=== PATIENT | male | born 1945 | race Caucasian/White ===

== ENCOUNTER → 2023-12-25 12:21 | Outpatient (REF) | payer MEDICARE, SELFPAY | LOC: HWRAD 12:21 | PROVIDERS: ATTENDING PHYSICIAN Dermatology; FAMILY PHYSICIAN Internal Medicine | DX: I80.01 Phlebitis and thrombophlebitis of superficial vessels of right lower extremity (principal) | CPT/HCPCS: 93971 ==

== ENCOUNTER 2023-12-25 17:26 | Emergency (ER) | payer MEDICARE, SELFPAY ==
[2023-12-25 17:35] VITALS: BP 153/95
--- NOTE | 2023-12-25 19:39 | ED.GENMED ---
History of Present Illness
General
Chief Complaint: DVT/Possible Blood Clot
Source: patient
Exam Limitations: none
Time Seen by Provider: 12/25/23 18:38
Nursing documentation reviewed up to this point in time: agreed with
Travel History
Have you had any contact with someone who has COVID-19?: No
Do you have any symptoms of coronavirus? Fever > 100 degrees, chills, cough, shortness of breath, sore throat, loss of taste or smell, muscle aches, or headache?: No
History of Present Illness
History of Present Illness:
pt is a 78 y/o M with h/o CAD, hld, NIDDM
here from outpatient US with a DVT
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
he thinks he noticed the lump a week or so ago
he has not had any previosu dvt/pe
no recent surgery or travel
no cp, sob, plerutiic pain
no color change to foot, no numbness
is scheduled for ouatpeitn EUS
Past History
Past History
ED Past Medical History: HTN, Hypercholesterolemia and NIDDM
ED Past Surgical History: None
Social History
Tobacco: Non-smoker
Alcohol: None
Personal:
Living: with family
Employment: Retired
Review of Systems
Review of Systems
Allergies reviewed?: Yes
All Other Systems: Not applicable
Phy Exam
Physical Exam
Physical Exam:
GENERAL: Alert , in no apparent distress
EYE: pupils equal and reactive
NECK: Supple
ENT: o/p clr, mmm.
CARDIAC: Regular rate and rhythm .
LUNGS: Clear breath sounds bilaterally, no acute respiratory distress, no wheezes/rales/rhonchi
ABDOMEN: Soft, without focal tenderness, no r/g, no cvat, normal bowel sounds
NEUROLOGICAL: Alert and oriented, no focal neuro deficits
SKIN: Warm and dry, skin intact.
MUSCULOSKELETAL: no edema in calf but there is a palpable calf cord that is minimally tender mid calf; full rom of leg
normal pusle
normal color
some varicosities
no thigh tenderness
PSYCH: Normal and appropriate interaction.
Course
Orders/Labs/Results
Orders:
Orders
12/25/23 19:46
Complete Blood Count/With Diff Urgent
Comprehensive Metabolic Panel Urgent
12/25/23 20:18
Apixaban [Eliquis] 10 mg PO NOW STA
Abnormal Lab Results
12/25/23
19:46
RBC 4.49 L 10^6/uL
(4.70-6.10)
Hgb 12.3 L g/dL
(13.0-18.0)
Hct 37.9 L %
(39.0-52.0)
MCHC 32.5 L g/dL
(33.0-37.0)
RDW 16.1 H %
(11.5-14.5)
MPV 10.5 H fL
(7.4-10.4)
Absolute Monos (auto) 0.7 H 10^3/uL
(0.1-0.6)
Creatinine 0.5 L mg/dL
(0.7-1.3)
Glucose 152 H mg/dl
(70-99)
Total Protein 6.1 L g/dl
(6.3-8.2)
12/25/23 19:46
12/25/23 19:46
Vital Signs
Initial and Last Documented VS:
Initial Vital Signs
Temp Pulse Resp BP Pulse Ox
98.2 F 92 18 153/95 97
12/25/23 17:35 12/25/23 17:35 12/25/23 17:35 12/25/23 17:35 12/25/23 17:35
Last Documented Vital Signs
Temp Pulse Resp BP Pulse Ox
98.2 F 92 18 153/95 97
12/25/23 17:35 12/25/23 17:35 12/25/23 17:35 12/25/23 17:35 12/25/23 17:35
MDM/Problems Addressed
Differential Diagnosis Includes:
DVT, superficial thrombophlebitis
MDM/Problems Addressed:
78-year-old male presents with an unprovoked DVT found on outpatient ultrasound. The report was not in the system but I was able to talk to the radiologist on-call who told me that the study shows a below the knee DVT in the intramuscular branches
without any other extension or DVTs. He does have a superficial venous clot in the distal GSV in the calf as well as of the calf varicosity. Patient has no chest pain or shortness of breath, is not tachycardic. Will check his creatinine and then
prescribed anticoagulation. Patient apparently has a outpatient endoscopy ultrasound scheduled for 3 days from now, he will have to speak with the GI doctor to make sure he can still have this study;
*Critical Care Note
Total Time (30-74mins, 75-104mins- exclusive of procedures): Not Applicable
ED Attending Note
-
Portions of this chart may have been created with voice recognition software.� Occasional wrong word or��sound alike� substitutions may have occurred due to the inherent limitations of voice recognition software.
Discharge Plan
Departure
Patient Disposition: Home (Routine Discharge)
Date of Disposition: 12/25/23
Time of Disposition: 20:19
Patient with high blood pressure during this ER visit?: No
Condition: Fair
Covid-19: Not Applicable
Discharge Problem:
DVT (deep venous thrombosis), Superficial thrombophlebitis
Instructions: Deep Vein Thrombosis (Blood Clots in the Legs) (DC), Phlebitis (DC)
Prescriptions:
New
Eliquis DVT-PE Treat 30D Start 5 mg (74 tabs) tablets,dose pack
See Rx Instructions .ROUTE .COMPLEX Qty: 74 0RF
Rx Instructions:
orally per package directions
No Action
oxycodone-acetaminophen 5 MG/325 MG tablet
1 tab PO Q4HPRN PRN (Reason: severe pain) Qty: 12 0RF
oxycodone-acetaminophen 5-300 mg tablet
1 tab PO TID PRN (Reason: pain) Qty: 10 0RF
prednisone 20 mg tablet
40 mg PO DAILY Qty: 10 0RF
oxycodone 10 mg tablet
10 mg PO Q8H PRN (Reason: pain) Qty: 10 0RF
cyclobenzaprine 10 mg tablet
10 mg PO TID PRN (Reason: muscle spasm) Qty: 10 0RF
Referrals:
Aura Camejo, [Family Provider] - Follow up in 2-3 days
Activity Restrictions/Additional Instructions:
You have a deep vein clot in your calf as well as a superficial venous phlebitis. Take Eliquis as prescribed. You will need to be on anticoagulation for at least several months, please speak with your family doctor about refilling this.
Return to the ER for chest pain, shortness of breath, fever, leg numbness or tingling, color change, cold foot, severe pain or any concerns. Eliquis is a blood thinner and thus if you fall or hit your head you could have bleeding. Please come back
if you have any injuries to allow us to evaluate you. Also return for any spontaneous bleeding from your nose, urine, rectum etc.
Interventions
Interventions:
*Risk Screen - Suicide Last Done: 12/25/23 17:35
*General Assessment Last Done: 12/25/23 17:35
*Neglect/Abuse Screening Last Done: 12/25/23 17:35
*Nursing Disposition Last Done: 12/25/23 20:33
ED- Cardiac Assessment Last Done: 12/25/23 19:22
ED- Pulmonary Assessment Last Done: 12/25/23 19:22
ED-Skin Assessment Last Done: 12/25/23 19:22
Discharge Date and Time
Discharge Date/Time: 12/25/23 20:36
Print Language: KYRGYZ
[2023-12-25 19:55] LABS: % Basophils 0.5 % (0-2); % Eosinophils 1.8 % (0-6); % Immature Granulocytes 0.4 % (0-0.5); % Lymphocytes 27.6 % (20.5-51.1); % Neutrophils 60.7 % (42.2-75.2); Absolute Eosinophils 0.1 10^3/uL (0-0.7); Absolute Monocytes 0.7 10^3/uL (0.1-0.6); Absolute Neutrophils 4.5 10^3/uL (1.4-6.5); Hematocrit 37.9 % (39.0-52.0); Hemoglobin 12.3 g/dL (13.0-18.0); Mean Corp Hgb Conc. 32.5 g/dL (33.0-37.0); Mean Corpuscular Hgb 27.4 pg (27.0-31.0); Mean Corpuscular Volume 84.4 fL (80.0-94.0); Mean Platelet Volume 10.5 fL (7.4-10.4); Nucleated Red Blood Cells % 0 % (-); Platelet Count 182 10^3/uL (130-400); Red Blood Cell Count 4.49 10^6/uL (4.70-6.10); Red Cell Dist. Width 16.1 % (11.5-14.5); White Blood Cell Count 7.4 10^3/uL (4.8-10.8)
[2023-12-25 20:16] LABS: ALT (SGPT) 26 U/L (0-50); AST (SGOT) 28 U/L (17-59); Albumin 3.6 g/dl (3.5-5.0); Alkaline Phosphatase 66 U/L (38-126); Blood Urea Nitrogen 16 mg/dl (9-20); Calcium 9.3 mg/dl (8.4-10.2); Carbon Dioxide 26 mmol/L (22-30); Chloride 102 mmol/L (98-107); Glucose 152 mg/dl (70-99); Potassium 4.2 mmol/L (3.5-5.1); Sodium 135 mmol/L (135-145); Total Bilirubin 0.3 mg/dl (0.2-1.3); Total Protein 6.1 g/dl (6.3-8.2); eGFR > 60.00
[2023-12-25] MEDS: ELIQUIS 10 MG PO (20:27)
== END 2023-12-25 20:36 | disposition home or self-care (01) ==
LOC: EMR 17:26
PROVIDERS: Physician Assistant; EMERGENCY PHYSICIAN Emergency Medicine; FAMILY PHYSICIAN Internal Medicine
DX: I82.401 Acute embolism and thrombosis of unspecified deep veins of right lower extremity (principal)
CPT/HCPCS: 99283; 80053; 85025

== ENCOUNTER 2025-03-31 09:26 | Emergency (ER) | payer MEDICARE, SELFPAY ==
[2025-03-31 09:41] VITALS: BP 145/87
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
[2025-03-31 10:58] LABS: Hematocrit 36.8 % (39.0-52.0); Hemoglobin 11.9 g/dL (13.0-18.0); Mean Corp Hgb Conc. 32.3 g/dL (33.0-37.0); Mean Corpuscular Volume 88.0 fL (80.0-94.0); Nucleated Red Blood Cells % 0 % (-); Platelet Count 145 10^3/uL (130-400); Red Cell Dist. Width 15.7 % (11.5-14.5)
[2025-03-31 11:00] VITALS: BP 126/80
[2025-03-31 11:56] LABS: C-Reactive Protein < 5.00 mg/L (0.0-10.00)
[2025-03-31 12:00] VITALS: BP 131/73
[2025-03-31 12:02] LABS: Blood Urea Nitrogen 11 mg/dl (9-20); Calcium 8.6 mg/dl (8.4-10.2); Carbon Dioxide 23 mmol/L (22-30); Chloride 107 mmol/L (98-107); Glucose 227 mg/dl (70-99); Potassium 4.3 mmol/L (3.5-5.1); Sodium 137 mmol/L (135-145); eGFR > 60.00
== END 2025-03-31 13:13 | disposition home or self-care (01) ==
LOC: EMR 09:26
PROVIDERS: Physician Assistant; EMERGENCY PHYSICIAN Emergency Medicine; FAMILY PHYSICIAN Internal Medicine
DX: M79.645 Pain in left finger(s) (principal); I10 Essential (primary) hypertension; I25.10 Atherosclerotic heart disease of native coronary artery without angina pectoris; E78.00 Pure hypercholesterolemia, unspecified; E11.9 Type 2 diabetes mellitus without complications
CPT/HCPCS: 99284; 96374; 29130; 73140; 80048; 85025; 85652; 86140

== ENCOUNTER 2025-07-03 11:02 | Emergency (ER) | payer MEDICARE, SELFPAY ==
[2025-07-03 11:03] VITALS: BP 146/94
--- NOTE | 2025-07-03 11:55 | ED.GENMED ---
History of Present Illness
General
Chief Complaint: Back Pain
Source: patient
Exam Limitations: none
Time Seen by Provider: 07/03/25 11:41
History of Present Illness
History of Present Illness:
79-year-old male on Eliquis and oxycodone chronically presents with lower back pain that radiates to the left hip. This is progressive over the last week. He has a history of sciatic discomfort which feels similar. No bowel or bladder
dysfunction. No fever. No known injury. He remembers having an epidural steroid injection that helped his discomfort. No other complaints at this time
Past History
Past History
ED Past Medical History: HTN, Hypercholesterolemia and NIDDM
ED Past Surgical History: None
Social History
Tobacco: Non-smoker
Alcohol: None
Personal:
Living: with family
Employment: Retired
Phy Exam
Physical Exam
Physical Exam:
General: Well-appearing male no acute respiratory distress
HEENT normal cephalic atraumatic
Heart: Regular rate and rhythm lungs: Clear no wheeze
Musculoskeletal exam: No reproducible tenderness about the lumbar spine or hip. He has good range of motion to the left leg. Bilateral patellar reflexes are 2+. Good sensation to the lower extremities
Course
Orders/Labs/Results
Orders:
Orders
07/03/25 11:54
CR Lumbar Spine 2 Or 3 Views Urgent
Comment:
Reason For Exam: back pain
07/03/25 13:27
Diazepam [Valium] 5 mg PO NOW STA
Vital Signs
Initial and Last Documented VS:
Initial Vital Signs
Temp Pulse Resp BP Pulse Ox
97.5 F 87 18 146/94 98
07/03/25 11:03 07/03/25 11:03 07/03/25 11:03 07/03/25 11:03 07/03/25 11:03
Last Documented Vital Signs
Temp Pulse Resp BP Pulse Ox
97.5 F 87 18 146/94 98
07/03/25 11:03 07/03/25 11:03 07/03/25 11:03 07/03/25 11:03 07/03/25 11:57
MDM/Problems Addressed
Differential Diagnosis Includes:
Low back pain radiating around to the lateral left hip worse with bearing weight. He is ambulatory here. No red flags to suggest cauda equina. No fever to suggest infectious process. X-ray pending. Patient cannot do NSAIDs as he is
anticoagulated. Consider steroid and/or gabapentin and follow-up with pain management
*Pulse Oximetry
SaO2: 98
Oxygen Mode of Delivery: Room air
Patient hypoxic: no
*Critical Care Note
Total Time (30-74mins, 75-104mins- exclusive of procedures): Not Applicable
Update Note
Update Note:
X-rays show compression deformity of T12 and L1 these may be chronic. Patient has acute on chronic low back pain. Patient is on narcotics at home. Patient got frustrated with his weight here and wanted to leave. He was offered a muscle relaxer
while here but declined. Will prescribe prednisone and gabapentin and advise that he follow-up with pain management
ED Attending Note
-
Portions of this chart may have been created with voice recognition software.� Occasional wrong word or��sound alike� substitutions may have occurred due to the inherent limitations of voice recognition software.
Discharge Plan
Departure
Patient Disposition: Home (Routine Discharge)
Date of Disposition: 07/03/25
Time of Disposition: 13:40
Patient with high blood pressure during this ER visit?: No
Discharge Problem:
Low back pain
Instructions: Radiculopathy (DC)
Prescriptions:
New
prednisone 10 mg Tablet
See Rx Instructions .ROUTE .COMPLEX Qty: 30 0RF
Rx Instructions:
Take By Mouth:
40 mg daily x3 days, 30 mg daily x3 days,
20 mg daily x3 days, 10 mg daily x3 days.
gabapentin 300 mg capsule
300 mg PO BID Qty: 14 0RF
No Action
oxycodone-acetaminophen 5 MG/325 MG tablet
1 tab PO Q4HPRN PRN (Reason: severe pain) Qty: 12 0RF
oxycodone-acetaminophen 5-300 mg tablet
1 tab PO TID PRN (Reason: pain) Qty: 10 0RF
prednisone 20 mg tablet
40 mg PO DAILY Qty: 10 0RF
oxycodone 10 mg tablet
10 mg PO Q8H PRN (Reason: pain) Qty: 10 0RF
cyclobenzaprine 10 mg tablet
10 mg PO TID PRN (Reason: muscle spasm) Qty: 10 0RF
Eliquis DVT-PE Treat 30D Start 5 mg (74 tabs) tablets,dose pack
See Rx Instructions .ROUTE .COMPLEX Qty: 74 0RF
Rx Instructions:
orally per package directions
Referrals:
UNKNOWN - PT DOES,NOT KNOW [Family Provider]
Activity Restrictions/Additional Instructions:
Use medicine as prescribed. Follow-up with your pain management doctor.
Interventions
Interventions:
*Risk Screen - Suicide Last Done: 07/03/25 11:03
*General Assessment Last Done: 07/03/25 11:03
*Neglect/Abuse Screening Last Done: 07/03/25 12:24
*ED- Fall Risk Assessment Last Done: 07/03/25 12:24
*ED COVID-19 Vaccine History Last Done: 07/03/25 12:24
*ED Influenza Vaccine History Last Done: 07/03/25 12:24
ED-Musculoskeletal Assessment Last Done: 07/03/25 12:24
Discharge Date and Time
Print Language: TAJIK
== END 2025-07-03 14:00 | disposition home or self-care (01) ==
LOC: EMR 11:02
PROVIDERS: EMERGENCY PHYSICIAN Student in an Organized Health Care Education/Training Program
DX: M54.50 Low back pain, unspecified (principal); I10 Essential (primary) hypertension; E78.00 Pure hypercholesterolemia, unspecified; E11.9 Type 2 diabetes mellitus without complications; Z79.01 Long term (current) use of anticoagulants
CPT/HCPCS: 99283; 72100

== ENCOUNTER → 2025-09-05 17:07 | Outpatient (REF) | payer MEDICARE, SELFPAY | LOC: PAVMRI 17:07 | PROVIDERS: ATTENDING PHYSICIAN Anesthesiology; FAMILY PHYSICIAN Internal Medicine | DX: M54.50 Low back pain, unspecified (principal) | CPT/HCPCS: 72148 ==